=== PATIENT | male | born 1960 | race Caucasian/White ===

== ENCOUNTER 2016-03-08 01:41 | Emergency (ER) | payer OTHER ==
[2016-03-08] MEDS ORDERED: methylPREDNISolone NA SUCC 125 MG/2 ML VIAL IVPB ONE (02:27)
[2016-03-08] MEDS ORDERED: KETOROLAC TROMETHAMINE 30 MG/1 ML VIAL IVPUSH ONE (02:27)
--- NOTE | 2016-03-08 02:28 | PDOC ---
History of Present Illness - General Chief Complaint: Pain, Acute Stated Complaint: LEFT ARM PAIN Time Seen by Provider: 03/08/16 02:04 History Source: Patient, Significant Other Exam Limitations: No Limitations - History of Present Illness Initial Comments: 03/08/16 03:10 55yo Male patient presents to ED c/o left arm pain x 3 weeks. Patient went to see his PCP and was prescribed Flexeril and Tylenol w/ Codeine. Patient reports medications not working. Denies CP, Abd pain, back pain, n/v/d, rectal bleeding , dysuria, or any other complaints at this time. 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 Occurred: reports: other (3 weeks.) Severity: reports: moderate Upper Extremity Pain Location: left: arm Method of Injury: reports: unknown Modifying Factors: improves with: pain medication Associated Symptoms: Neck pain Extremity Pain Location - Extremity Pain Location Extremity Pain Locations: left: arm Past History - Travel Traveled outside of the country in the last 30 days: No Close contact w/someone who was outside of country & ill: No - Past Medical History Allergies/Adverse Reactions: Allergies Allergy/AdvReac Type Severity Reaction Status Date / Time No Known Allergies Allergy Verified 01/14/13 02:40 Home Medications: Ambulatory Orders Acetaminophen with Codeine [Acetaminophen-Cod #2 Tablet] 1 each PO Q8H PRN 03/08 Cyclobenzaprine HCl [Flexeril -] 10 mg PO HS 03/08/16 Ibuprofen 600 mg PO Q6H PRN #30 tablet 03/08/16 Lisinopril 5 mg PO DAILY 03/08/16 Prednisone [Deltasone -] 40 mg PO DAILY #14 tablet 03/08/16 Tramadol HCl 50 mg PO Q6H PRN #12 tablet MDD 4 tablets daily 03/08/16 Diabetes: Yes (pre-DM) HTN: Yes Hypercholesterolemia: Yes Suicide Attempt (Hx): No - Immunization History Immunization Up to Date: Yes - Psycho/Social/Smoking Cessation Hx Anxiety: No Suicidal Ideation: No Smoking Status: No Smoking History: Unknown if ever smoked Substance Use Type: None, Heroin Review of Systems - Review of Systems Able to Perform ROS?: Yes Is the patient limited [place]ican proficient: Yes Constitutional: No: Chills, Fever Respiratory: No: Cough, Orthopnea, Shortness of Breath Cardiac (ROS): No: Chest Pain, Irregular Heart Rate, Lightheadedness, Palpitations, Syncope, Chest Tightness ABD/GI: No: Diarrhea, Nausea, Vomiting : No: Dysuria Musculoskeletal: Yes: Neck Pain, Other (Left Arm Pain). No: Back Pain Integumentary: No: Rash Neurological: No: Headache All Other Systems: Reviewed and Negative *Physical Exam - Vital Signs Last Vital Signs Temp Pulse Resp BP Pulse Ox 98.1 F 72 18 146/96 96 03/08/16 01:58 03/08/16 01:58 03/08/16 01:58 03/08/16 01:58 03/08/16 01:58 - Physical Exam General Appearance: Yes: Nourished, Appropriately Dressed, Mild Distress Neck: positive: Trachea midline, Supple Respiratory/Chest: positive: Lungs Clear, Normal Breath Sounds Cardiovascular: positive: Regular Rhythm, Regular Rate Gastrointestinal/Abdominal: positive: Normal Bowel Sounds, Soft Lymphatic: negative: Adenopathy Musculoskeletal: positive: Normal Inspection, Other (Cervical ROM WNL). negative: CVA Tenderness Extremity: positive: Normal Capillary Refill, Normal Inspection, Normal Range of Motion. negative: Coldness, Cyanosis, Delayed Capillary Refill, Pedal Edema , Swelling, Erythema, Inflammation Integumentary: positive: Normal Color, Dry, Warm Neurologic: positive: club lounge attendant II-XII NML intact *DC/Admit/Observation/Transfer Diagnosis at time of Disposition: Pinched nerve in neck, Left arm pain - Discharge Dispostion Disposition: HOME Condition at time of disposition: Stable Admit: No - Prescriptions Prescriptions: Prednisone [Deltasone -] 40 mg PO DAILY #14 tablet Ibuprofen 600 mg PO Q6H PRN #30 tablet PRN Reason: Mild Pain Tramadol HCl 50 mg PO Q6H PRN #12 tablet MDD 4 tablets daily PRN Reason: Severe Pain - Referrals Referrals: Jovanni Ge MD [Staff Physician] - - Patient Instructions Printed Discharge Instructions: DI for Neck Pain Additional Instructions: FOLLOW UP WITH DR. ALVARENGA AT [facility]. TAKE MEDICATIONS PRESCRIBED. DO NOT DRIVE, DRINK ALCOHOL, OR OPERATE HEAVY MACHINERY WHILE TAKING TRAMADOL. CALL DR. ALVARENGA THIS WEEK FOR APPOINTMENT. GET PLENTY REST. Print Language: MAURITANIAN
[2016-03-08 02:29] VITALS: TEMP 98.1; BMI 32.1
[2016-03-08] MEDS ORDERED: methylPREDNISolone NA SUCC 125 MG/2 ML VIAL ONE (02:35)
[2016-03-08] MEDS ORDERED: KETOROLAC TROMETHAMINE 30 MG/1 ML VIAL ONE (02:35)
--- NOTE | 2016-03-08 02:36 | PDOC ---
*Physical Exam - Vital Signs Last Vital Signs Temp Pulse Resp BP Pulse Ox 98.1 F 72 18 146/96 96 03/08/16 01:58 03/08/16 01:58 03/08/16 01:58 03/08/16 01:58 03/08/16 01:58 Medical Decision Making - Medical Decision Making 03/08/16 02:36 agree with care from DAVI Hsu *DC/Admit/Observation/Transfer Diagnosis at time of Disposition: Pinched nerve in neck, Left arm pain - Discharge Dispostion Disposition: HOME - Prescriptions Prescriptions: Prednisone [Deltasone -] 40 mg PO DAILY #14 tablet Ibuprofen 600 mg PO Q6H PRN #30 tablet PRN Reason: Mild Pain Tramadol HCl 50 mg PO Q6H PRN #12 tablet MDD 4 tablets daily PRN Reason: Severe Pain - Referrals Referrals: Jovanni Ge MD [Staff Physician] - - Patient Instructions Printed Discharge Instructions: DI for Neck Pain Additional Instructions: FOLLOW UP WITH DR. ALVARENGA AT [facility]. TAKE MEDICATIONS PRESCRIBED. DO NOT DRIVE, DRINK ALCOHOL, OR OPERATE HEAVY MACHINERY WHILE TAKING TRAMADOL. CALL DR. ALVARENGA THIS WEEK FOR APPOINTMENT. GET PLENTY REST. Print Language: GREEK - Post Discharge Activity Work/School Note: Back to Work
[2016-03-08 02:54] VITALS: BP 136/95; PULSE 58
[2016-03-08] MEDS ORDERED: GABAPENTIN 300 MG CAPSULE (FP) PO ONE (03:17)
[2016-03-08] MEDS ORDERED: GABAPENTIN 100 MG CAPSULE (FP) ONE (03:50)
== END 2016-03-08 03:58 | disposition home or self-care (01) ==
LOC: JER 01:41
PROC: 3E0333Z Introduction of Anti-inflammatory into Peripheral Vein, Percutaneous Approach (ICD-10-PCS; principal; 2016-03-08)
DX: G58.8 Other specified mononeuropathies (principal); I10 Essential (primary) hypertension; E78.00 Pure hypercholesterolemia, unspecified; R73.03 Prediabetes
CPT/HCPCS: 99283-25